=== PATIENT | female | born 1995 | race Caucasian/White ===

== ENCOUNTER 2019-09-08 11:50 | Inpatient (IN) ==
[2019-09-08] MEDS ORDERED: Ringers Solution, Lactated 1,000 ML ONE (12:14)
[2019-09-08] MEDS ORDERED: Metoclopramide 10 MG/2 ML VIAL IVP PRN (12:59)
[2019-09-08] MEDS ORDERED: Naloxone 0.4 MG/ML INJ IVP PRN (12:59)
[2019-09-08] MEDS ORDERED: *HR* Nalbuphine 10 MG/ML AMPUL IVP PRN (12:59)
[2019-09-08] MEDS ORDERED: Famotidine 20 MG/2 ML VIAL IVP PRN (12:59)
[2019-09-08] MEDS ORDERED: Azithromycin 500 MG in 0.9 % Sodium Chloride 250 ML IVPB PRN (13:00)
[2019-09-08] MEDS ORDERED: Lidocaine 1% 20 ML MDV INFILT PRN (13:00)
[2019-09-08] MEDS ORDERED: Ringers Solution, Lactated 1,000 ML IVC SCH (13:00)
[2019-09-08] MEDS ORDERED: miSOPROStoL 25 MCG TABLET PO SCH (14:15)
[2019-09-08] MEDS ORDERED: EPHEDrine 50 MG/ML VIAL IVP PRN (14:22)
[2019-09-08] MEDS ORDERED: Epidural Premix (fent/bupiv) 110 ML EP SCH (14:30)
[2019-09-08 14:32] LABS: Basophils % 0.3 %; Eosinophils % 0.7 %; Hematocrit 33.6 % (35.3-44.9); Hemoglobin 10.7 g/dL (11.5-15.4); Immature Granulocytes % 0.3 % (0-4); Lymphocytes # 1.4 K/mcL (0.6-4.6); Lymphocytes % 23.9 %; Mean Corpuscular HGB Conc 31.8 g/dL (31.6-35.5); Mean Corpuscular Hemoglobin 27.9 pg (28.0-33.3); Mean Corpuscular Volume 87.5 fL (83.0-100.0); Mean Platelet Volume 10.4 fL (9.4-12.4); Monocytes # 0.5 K/mcL (0.0-1.3); Monocytes % 8.5 %; Neutrophils # 3.8 K/mcL (1.6-8.9); Platelet Count 255 K/mcL (140-400); Red Blood Count 3.84 M/mcL (3.82-4.97); Segmented Neutrophils % 66.3 %; White Blood Count 5.8 K/mcL (4.3-11.1)
[2019-09-08 14:45] LABS: Amphetamine Screen,Urine Negative ng/mL (Cutoff=1000); Barbiturate Screen,Urine Negative ng/mL (Cutoff=200); Benzodiazepines Screen,Urine Negative ng/mL (Cutoff=200); Cannabinoid Screen,Urine Negative ng/mL (Cutoff = 50); Cocaine Screen,Urine Negative ng/mL (Cutoff= 300); Opiate Screen,Urine Negative ng/mL (Cutoff=300); Phencyclidine Screen,Urine Negative ng/mL (Cutoff=25)
[2019-09-08] MEDS: Ondansetron 4 MG/2 ML VIAL IVP PRN (15:38)
[2019-09-08] MEDS: Oxytocin 20 units/ LR 1000 mL 20 UNIT/1,000 ML BAG IVC SCH (19:55)
[2019-09-08] MEDS ORDERED: Ropivacaine/PF 0.2% 20 ML VIAL ONE (23:49)
[2019-09-08] MEDS ORDERED: *HR* FentaNYL (PF) 100 MCG/2 ML VIAL ONE (23:49)
[2019-09-09] MEDS: Ondansetron 4 MG/2 ML VIAL IVP PRN (06:45)
[2019-09-09] MEDS: Oxytocin 20 units/ LR 1000 mL 20 UNIT/1,000 ML BAG IVC SCH (08:35)
[2019-09-09] MEDS ORDERED: Benzocaine/Menthol 56 GM AEROSOL SPRAY TP PRN (11:01)
[2019-09-09] MEDS ORDERED: Oxytocin 20 units/ LR 1000 mL 20 UNIT/1,000 ML BAG IVC ONE (11:01)
[2019-09-09] MEDS ORDERED: Lanolin 7 G OINT...G. TP PRN (11:01)
[2019-09-09] MEDS ORDERED: Oxytocin 20 units/ LR 1000 mL 20 UNIT/1,000 ML BAG IVC SCH (11:01)
[2019-09-09] MEDS: Ibuprofen 600 MG TABLET PO PRN ×2 (11:12→17:51)
[2019-09-09] MEDS: Prenatal Vit/FA 1 EACH TABLET PO SCH (11:12)
[2019-09-09] MEDS: Acetaminophen 325 MG TABLET PO PRN (20:01)
[2019-09-10] MEDS: Acetaminophen 325 MG TABLET PO PRN (05:05)
[2019-09-10] MEDS: Ibuprofen 600 MG TABLET PO PRN (06:36)
[2019-09-10 07:56] VITALS: BP 132/89
[2019-09-10] MEDS: Prenatal Vit/FA 1 EACH TABLET PO SCH (08:05)
== END 2019-09-10 11:35 | disposition home or self-care (01) | DRG 807 ==
LOC: 1NENULAB 11:50 → 1NENUOBS 09-09 10:26
PROVIDERS: ADMIT Advanced Practice Midwife; ATTEND Advanced Practice Midwife

== ENCOUNTER 2022-01-23 04:07 | Inpatient (IN) ==
[2022-01-23] MEDS ORDERED: Azithromycin 500 MG in 0.9 % Sodium Chloride 250 ML IVPB PRN (04:23)
[2022-01-23] MEDS ORDERED: Famotidine 20 MG/2 ML VIAL IVP PRN (04:23)
[2022-01-23] MEDS ORDERED: Lidocaine 1% 20 ML MDV INFILT PRN (04:23)
[2022-01-23] MEDS ORDERED: Metoclopramide 10 MG/2 ML VIAL IVP PRN (04:23)
[2022-01-23] MEDS ORDERED: *HR* Nalbuphine 10 MG/ML AMPUL IV PRN (04:23)
[2022-01-23] MEDS ORDERED: Ondansetron 4 MG/2 ML VIAL IVP PRN (04:23)
[2022-01-23] MEDS ORDERED: Naloxone 0.4 MG/ML INJ IVP PRN (04:23)
[2022-01-23] MEDS ORDERED: Ringers Solution, Lactated 1,000 ML IVC SCH (04:30)
[2022-01-23] MEDS ORDERED: Oxytocin 30 UNIT/503 ML BAG IVC SCH ×2 (04:30→12:30)
[2022-01-23 05:24] LABS: Basophils % 0.3 %; Eosinophils # 0.1 K/mcL (0.0-0.6); Eosinophils % 1.5 %; Hematocrit 32.7 % (35.3-44.9); Hemoglobin 10.3 g/dL (11.5-15.4); Immature Granulocytes % 0.5 % (0-4); Lymphocytes # 1.9 K/mcL (0.6-4.6); Lymphocytes % 26.1 %; Mean Corpuscular HGB Conc 31.5 g/dL (31.6-35.5); Mean Corpuscular Hemoglobin 27.2 pg (28.0-33.3); Mean Corpuscular Volume 86.3 fL (83.0-100.0); Mean Platelet Volume 9.5 fL (9.4-12.4); Monocytes # 0.6 K/mcL (0.0-1.3); Monocytes % 8.7 %; Neutrophils # 4.7 K/mcL (1.6-8.9); Platelet Count 294 K/mcL (140-400); Red Blood Count 3.79 M/mcL (3.82-4.97); Red Cell Distribution Width 13.1 % (11.5-14.5); Segmented Neutrophils % 62.9 %; White Blood Count 7.4 K/mcL (4.3-11.1)
[2022-01-23 05:27] LABS: Amphetamine Screen,Urine Negative ng/mL (Cutoff=1000); Barbiturate Screen,Urine Negative ng/mL (Cutoff=200); Benzodiazepines Screen,Urine Negative ng/mL (Cutoff=200); Cannabinoid Screen,Urine Negative ng/mL (Cutoff = 50); Cocaine Screen,Urine Negative ng/mL (Cutoff= 300); Opiate Screen,Urine Negative ng/mL (Cutoff=300); Phencyclidine Screen,Urine Negative ng/mL (Cutoff=25)
[2022-01-23] MEDS ORDERED: EPHEDrine 50 MG/ML VIAL IVP PRN (06:24)
[2022-01-23] MEDS ORDERED: Epidural Premix (fent/bupiv) 110 ML EP SCH (06:30)
[2022-01-23 06:45] LABS: Adenovirus Not Detected (Not Detect); Bordetella Pertussis Not Detected (Not Detect); Chlamydophila pneumoniae Not Detected (Not Detect); Coronavirus 229E Not Detected (Not Detect); Coronavirus HKU1 Not Detected (Not Detect); Coronavirus NL63 Not Detected (Not Detect); Coronavirus OC43 Not Detected (Not Detect); Human Metapneumovirus Not Detected (Not Detect); Human Rhinovirus/Enterovirus Not Detected (Not Detect); Influenza A Subtype 2009 H1 Not Detected (Not Detect); Influenza B Not Detected (Not Detect); Mycoplasma pneumoniae Not Detected (Not Detect); Parainfluenza Virus 1 Not Detected (Not Detect); Parainfluenza Virus 2 Not Detected (Not Detect); Parainfluenza Virus 3 Not Detected (Not Detect); Parainfluenza Virus 4 Not Detected (Not Detect); Respiratory Syncytial Virus Not Detected (Not Detect); SARS-CoV-2 Not Detected (Not Detect)
[2022-01-23] MEDS ORDERED: Ondansetron ODT 4 MG TAB.RAPDIS SL PRN (12:25)
[2022-01-23] MEDS ORDERED: Lanolin 7 G OINT...G. TP PRN (12:25)
[2022-01-23] MEDS ORDERED: Benzocaine/Menthol 56 GM AEROSOL SPRAY TP PRN (12:25)
[2022-01-23] MEDS ORDERED: OXYTOCIN/RINGERS LACTATE 10 UNIT/166.6 ML BAG IVC ONE (12:25)
[2022-01-23] MEDS: Acetaminophen 325 MG TABLET PO SCH ×2 (14:59→20:31)
[2022-01-23] MEDS: Ibuprofen 600 MG TABLET PO SCH ×2 (14:59→20:30)
[2022-01-24] MEDS: Ibuprofen 600 MG TABLET PO SCH ×2 (02:52→08:37)
[2022-01-24] MEDS: Acetaminophen 325 MG TABLET PO SCH ×2 (02:52→08:38)
[2022-01-24 05:49] LABS: Basophils % 0.2 %; Eosinophils # 0.1 K/mcL (0.0-0.6); Eosinophils % 1.2 %; Hematocrit 28.4 % (35.3-44.9); Hemoglobin 9.2 g/dL (11.5-15.4); Immature Granulocytes % 0.6 % (0-4); Lymphocytes % 22.9 %; Mean Corpuscular HGB Conc 32.4 g/dL (31.6-35.5); Mean Corpuscular Hemoglobin 28.2 pg (28.0-33.3); Mean Corpuscular Volume 87.1 fL (83.0-100.0); Mean Platelet Volume 9.9 fL (9.4-12.4); Monocytes # 0.7 K/mcL (0.0-1.3); Monocytes % 7.9 %; Neutrophils # 5.9 K/mcL (1.6-8.9); Platelet Count 259 K/mcL (140-400); Red Blood Count 3.26 M/mcL (3.82-4.97); Red Cell Distribution Width 13.2 % (11.5-14.5); Segmented Neutrophils % 67.2 %; White Blood Count 8.8 K/mcL (4.3-11.1)
[2022-01-24 06:34] VITALS: BP 119/77; PULSE 91; TEMP 97.7; O2SAT 97
[2022-01-24] MEDS ORDERED: Prenatal Vit/FA 1 EACH TABLET PO SCH (09:00)
== END 2022-01-24 13:39 | disposition home or self-care (01) | DRG 807 ==
LOC: 1NENULAB 04:07 → 1NENUOBS 14:28
PROVIDERS: ADMIT Obstetrics & Gynecology; ATTEND Obstetrics & Gynecology